=== PATIENT | female | born 1985 | race African-American/Black ===

== ENCOUNTER 2018-05-10 20:36 | Emergency (ER) | payer OTHER ==
[~2018-05-10] VITALS: Ht 167.6 cm; Wt 60.8 kg
[2018-05-10 20:52] VITALS: BP 122/70
[2018-05-10] MEDS ORDERED: ALBUTEROL FS 2.5 MG/3 ML VIAL.NEB NEB ONE (21:00)
[2018-05-10] MEDS ORDERED: predniSONE 20 MG TABLET PO ONE (21:00)
[2018-05-10] MEDS ORDERED: IPRATROPIUM NEB FS 0.5 MG/2.5 ML AMPUL.NEB NEB ONE (21:00)
[2018-05-10] MEDS ORDERED: predniSONE 20 MG TABLET ONE (21:05)
[2018-05-10] MEDS ORDERED: ALBUTEROL FS 2.5 MG/3 ML VIAL.NEB ONE (21:05)
[2018-05-10] MEDS ORDERED: IPRATROPIUM NEB FS 0.5 MG/2.5 ML AMPUL.NEB ONE (21:05)
== END 2018-05-10 22:07 | disposition home or self-care (01) ==
LOC: ER 20:36
DX: J45.901 Unspecified asthma with (acute) exacerbation (principal); Z88.0 Allergy status to penicillin
CPT/HCPCS: 94640; 99283; A4606; J7512; Z7610